=== PATIENT | male | born 1940 | race Asian ===

== ENCOUNTER → 2017-12-25 | Outpatient (CLI) | payer MEDICARE, OTHER ==
[~2017-12-25] MED LIST: ASACOL HD800 MG PO; GLUCOPHAGE500 MG/TAB PO; PREDNISONE20 MG PO; ZOCOR5 MG PO
== END ==
LOC: COL.RAD 08:00
DX: K50.10 Crohn's disease of large intestine without complications (principal); Z01.812 Encounter for preprocedural laboratory examination
CPT/HCPCS: Q9967

== ENCOUNTER 2018-03-08 12:44 | Outpatient (CLI) | payer MEDICARE, OTHER ==
[~2018-03-08] VITALS: Ht 177.8 cm; Wt 91.0 kg
[2018-03-08] MEDS ORDERED: VITAMIN D31000 I1 PO (13:18)
[2018-03-08] MEDS ORDERED: ASPIRIN E.C. 8181 MG PO (13:18)
[2018-03-08 13:19] LABS: BASO % 0.3 % (0.0-2.0); EOS # 0.1 (0.0-0.7); EOS % 1.4 % (0-4.0); GRAN # 6.2 (1.4-6.5); GRAN % 65.6 % (42.2-75.2); HEMATOCRIT 38.9 % (42.0-52.0); HEMOGLOBIN 12.8 g/dl (13.5-18.0); LYMPH # 2.4 (1.2-3.4); LYMPH % 25.9 % (20.0-51.0); MEAN CELL VOLUME 88 fl (80.0-100.0); MEAN CORPUSCULAR HEMOGLOBIN 29 pg (27.0-31.0); MEAN CORPUSCULAR HGB CONC 33 g/dl (33.0-37.0); MEAN PLATELET VOLUME 8.8 fl (7.4-10.4); MONO # 0.6 (0.1-0.6); MONO % 6.3 % (1.7-9.3); PLATELET COUNT 269 K/mm3 (130-400); RED BLOOD COUNT 4.43 M/mm3 (4.20-5.60); REDCELL DISTRIBUTION WIDTH-CV 16.8 % (11.5-14.5)
[2018-03-08] MEDS ORDERED: VITAMIN E1000 U/CAP PO (13:19)
[2018-03-08] MEDS ORDERED: VITAMINC1000TA (13:19)
[2018-03-08] MEDS ORDERED: EPA FISH OIL1 SGL PO (13:20)
[2018-03-08 13:27] LABS: ALBUMIN 3.7 gm/dL (3.5-5.0); BILIRUBIN UNCONJUGATED 0.4 mg/dL (0.0-1.1); BILIRUBIN,DIRECT 0.2 mg/dL (0.0-0.4); BILIRUBIN,TOTAL 0.6 mg/dL (0.0-1.0); TOTAL PROTEIN 7.1 gm/dL (6.4-8.2)
[2018-03-08 14:00] VITALS: BP 107/53; PULSE 71; TEMP 9.7
== END 2018-03-08 16:00 | disposition home or self-care (01) ==
LOC: EUO 12:44
PROVIDERS: Internal Medicine Gastroenterology
DX: K50.10 Crohn's disease of large intestine without complications (principal)
CPT/HCPCS: J3358; J7050

== ENCOUNTER → 2018-07-12 | Outpatient (CLI) | payer MEDICARE, OTHER ==
[~2018-07-12] MED LIST changes: +ASPIRIN E.C. 8181 MG PO; +EPA FISH OIL1 SGL PO; +VITAMIN D31000 I1 PO; +VITAMIN E1000 U/CAP PO; +VITAMINC1000TA
== END ==
LOC: COL.RAD 11:22
DX: K50.10 Crohn's disease of large intestine without complications (principal)
CPT/HCPCS: Q9967

== ENCOUNTER → 2018-10-14 | Outpatient (CLI) | payer MEDICARE, OTHER | LOC: ZCOL.LAB 16:51 | DX: H60.92 Unspecified otitis externa, left ear (principal) ==

== ENCOUNTER → 2020-05-03 | Outpatient (CLI) | payer MEDICARE, OTHER | LOC: COL.LAB 13:54 | DX: K50.10 Crohn's disease of large intestine without complications (principal); Z79.899 Other long term (current) drug therapy ==